=== PATIENT | male | born 1965 | race Caucasian/White ===

== ENCOUNTER 2018-06-09 19:01 | Emergency (ER) | payer OTHER ==
--- NOTE | 2018-06-09 19:15 | EDPHY ---
H & P Time Seen by Provider: 06/09/18 19:15 HPI/ROS: Chief complaint. Abnormal EKG HPI. Patient is a 52-year-old male who over the past 2 weeks has noticed elevated heart rate while he is mountain biking. He says that during a hard climb while he is wearing a heart rate moderate he notes that his heart rate goes from 160-220. He feels somewhat dizzy with this. He gets off his bike and the dizziness goes away in about 1 min. He checks his pulse manually and does not feel that it is 220. Again the dizziness resolved after 1 min. He does not have chest pain or shortness of breath with this. Yesterday he was mountain biking and the dizziness lasted about the same amount of time but he felt weak for about 1 hr. He did not have chest pain or shortness of breath. He has no fever cough. He was started in January on blood pressure medication initially a diuretic and then amlodipine which has been also adjusted from 5-10 mg. He denies history of diabetes. He was seen by his regular physician today for these complaints. EKG was performed in the office and there was concern for ST elevation in V1 through V3. He was sent to the emergency department ROS 10 systems were reviewed and negative with the exception of the elements mentioned in the history of present illness Past Medical/Surgical History: Hypertension, basal cell carcinoma, mood disorder Social History: , nonsmoker, no alcohol Smoking Status: Never smoked Physical Exam: General Appearance: Alert well-developed male mild distress vital signs significant for blood pressure 175/106 Eyes: Pupils equal and round no pallor or injection. ENT, Mouth: Mucous membranes are moist. Respiratory: There are no retractions, lungs are clear to auscultation. Cardiovascular: Regular rate and rhythm. Gastrointestinal: Abdomen is soft and nontender, no masses, bowel sounds normal. Neurological: Awake and alert, sensory and motor exams grossly normal. Skin: Warm and dry, no rashes. Musculoskeletal: Neck is supple nontender. Extremities symmetrical, full range of motion. Psychiatric: Patient is oriented X 3, there is no agitation. Constitutional: Initial Vital Signs Temperature (C) 36.6 C 06/09/18 19:06 Heart Rate 66 06/09/18 19:06 Respiratory Rate 18 06/09/18 19:06 Blood Pressure 175/106 H 04/03/19 19:06 O2 Sat (%) 97 06/09/18 19:06 O2 Delivery Mode Nasal Cannula Allergies/Adverse Reactions: BEE STINGS Allergy (Severe, Uncoded 05/23/15 17:10) Anaphylaxis Home Medications: Medication Instructions Recorded Zolpidem Tartrate [Ambien 10 mg] 05/23/15 buPROPion [Wellbutrin 100mg (RX)] 05/23/15 Amlodipine Besylate 06/09/18 Medical Decision Making - Diagnostics EKG Interpretation: EKG interpreted by me shows normal sinus rhythm normal interval and axis. QRS is normal there appears to be early repolarization in lead V1 V2. Otherwise no significant ST elevation or depression. No arrhythmia. The rate is 66 Imaging Results: Imaging Impressions Chest X-Ray 06/09/18 19:24 IMPRESSION: No evidence for acute cardiopulmonary abnormality. Chest x-ray interpreted by me is normal Procedures: IV normal saline, monitor ED Course/Re-evaluation: Point of care troponin 0.00 Point of care chemistry normal Point of care CBC shows 8.1 white blood cell count with hemoglobin 16.7 hematocrit 47 Re-evaluation 7:46 p.m.. Patient is stable and without chest discomfort. Patient, his , and I discussed imaging lab EKG findings. We discussed treatment plan including criteria for return and importance of follow-up and further evaluation. 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 They expressed understanding and agreement Differential Diagnosis: Heart score-- History low suspicion-0 EKG normal-0 Age [age] Risk factors are hypertension but no family history-1 Troponin -normal-0 Total 2 I have considered acute coronary syndrome. It is possible the patient is having a arrhythmia such as atrial fibrillation to causes heart rate high and make him feel dizzy. Considered dehydration and electrolyte abnormalities as well. - Data Points Laboratory Results: 06/09/18 06/09/18 19:13 19:10 POC Sodium 143 mEq/L mEq/L (135-145) POC Potassium 4.3 mEq/L mEq/L (3.3-5.0) POC Chloride 102.0 mEq/L mEq/L (97-110) POC Total CO2 27 mEq/L mEq/L (22-31) POC BUN 11 mg/dL mg/dL (7-23) POC Creatinine 0.8 mg/dL mg/dL (0.7-1.3) POC Glucose 79 mg/dL mg/dL (70-100) POC Calcium 9.9 mg/dL mg/dL (8.5-10.4) POC Troponin I 0.00 ng/mL ng/mL (0.00-0.08) Point of Care Test Results: CBC CBC Collection Date 06/09/18 CBC Collection Time 19:05 WBC 8.10 RBC 5.22 HGB 16.7 HCT 47.0 PLT 246 Neut # 3.53 Neut 43.6 LYMPH # 3.66 LYMPH 45.2 MCV 90.0 Chemistry 06/09/18 06/09/18 19:13 19:10 POC Sodium 143 mEq/L mEq/L (135-145) POC Potassium 4.3 mEq/L mEq/L (3.3-5.0) POC Chloride 102.0 mEq/L mEq/L (97-110) POC Total CO2 27 mEq/L mEq/L (22-31) POC BUN 11 mg/dL mg/dL (7-23) POC Creatinine 0.8 mg/dL mg/dL (0.7-1.3) POC Glucose 79 mg/dL mg/dL (70-100) POC Calcium 9.9 mg/dL mg/dL (8.5-10.4) POC Troponin I 0.00 ng/mL ng/mL (0.00-0.08) Departure - Departure Disposition: Home, Routine, Self-Care Clinical Impression: Palpitations Condition: Good Instructions: Heart Palpitations (ED) Additional Instructions: Easy activity the next few days until see cardiology. Try not to get your heart rate up to 150-160 and certainly not to 220 Call cardiology in the morning for further evaluation return for worsening symptoms including irregular heartbeat or fast heartbeat, chest discomfort, trouble breathing Referrals: Flash Pagan DO [Primary Care Provider] - As per Instructions Moustapha Tovar MD [Medical Doctor] - 1-2 days without fail
[2018-06-09 20:25] VITALS: BP 132/91
--- NOTE | 2018-06-09 22:56 | CPEKG ---
Test Reason : OPEN Blood Pressure : / mmHG Vent. Rate : 066 BPM Atrial Rate : 067 BPM P-R Int : 190 ms QRS Dur : 081 ms QT Int : 399 ms P-R-T Axes : 059 018 018 degrees QTc Int : [address] elev, probable normal early repol pattern Confirmed by Lior Vega [id number]) on 06/09/2018 10:55:54 PM Referred By: PHYSICIAN ED Confirmed By:Lior Vega
== END 2018-06-09 20:23 | disposition home or self-care (01) ==
LOC: CED 19:01
DX: R00.2 Palpitations (principal); I10 Essential (primary) hypertension
CPT/HCPCS: 71045-PO; 80048-ER; 84484-ER; 85025-QW-ER; 99284-ER

== ENCOUNTER 2018-08-26 06:57 | Observation (INO) | payer OTHER | END 2018-08-27 10:40 | disposition home or self-care (01) | LOC: F2W 06:57 ==